=== PATIENT | male | born 1980 | race Caucasian/White ===

== ENCOUNTER 2020-03-31 08:14 | Outpatient (CLI) | payer OTHER ==
[~2020-03-31] VITALS: Ht 170.2 cm; Wt 87.4 kg
[2020-03-31] VITALS (9 sets, daily range): BP systolic 110–137; BP diastolic 70–93; PULSE 67–89
[2020-03-31 09:49] LABS: GLUCOSE,CSF 59 mg/dL (40-70); TOTAL PROTEIN,CSF 76 mg/dL (15-45)
[2020-03-31 12:07] LABS: CSF APPEARANCE HAZY; CSF COLOR PINK; CSF RBC 3220 /mm3 (0-0)
[2020-03-31 12:08] LABS: CSF MONONUCLEAR 58 % (70-100); CSF POLYMORPHONUCLEAR 42 % (0-6)
[2020-04-02 13:16] LABS: CSF OLIG BD INTERPRETATION 0 bands (<2); CSF OLIGOCLONAL BANDING 0 bands (()); SE OLIGOCLONAL BANDING 0 bands (())
[2020-04-03 07:41] LABS: ALBUMIN CSF 40.3 mg/dL (<=27.0)
[2020-04-03 07:45] LABS: ALBUMUN SERUM 4510 mg/dL (()); IGG,SERUM 1390 mg/dL (()); IGG/ALBUMIN SERUM 0.31 (<=0.40)
[2020-04-03 08:17] LABS: CSF IGG/ALBUMIN 0.22 (<=0.21); CSF,IGG 8.8 mg/dL (<=8.1); CSF-IGG INDEX 0.71 (<=0.85)
== END 2020-03-31 11:16 | disposition home or self-care (01) ==
LOC: COL.RAD 08:14
PROVIDERS: Psychiatry & Neurology Neurology
DX: R51.9 Headache, unspecified (principal); R76.8 Other specified abnormal immunological findings in serum